=== PATIENT | female | born 1980 ===

== ENCOUNTER 2017-02-10 14:49 | Inpatient (IN) | payer SELFPAY ==
[2017-02-10 15:35] VITALS: BMI 34.3
--- NOTE | 2017-02-10 15:52 | CP.PCM.HP ---
Addendum entered and electronically signed by Emily Horne DO, DO 16:26: Per discussion with neurology, will dose Verapamil 40mg Q12h starting 02/11/17 Original Note: <Emily Horne DO - Last Filed: 02/10/17 16:24> History of Present Illness - History of Present Illness History of Present Illness: Patient is a 36 year old female with history of right sided facial parasthesia who presented to the [facility] ED on 02/06 for new onset right arm numbness and weakness. Head CT performed with f/u carotid artery US and MRI of brain showing multiple small foci of diffusion restriction in the left brain with the largest focus seen at the posterior left parietal lobe. Findings suggestive of acute embolic infarctions. Patient was evaluated by neurologist Dr. Torres and roll mill operator Dr. Peñaloza at [facility]. Patient had work up for symptoms including carotid US, Brain MRI, Echo with bubble study, CTA neck and brain, and coagulopathy work up. Patient was transferred to [facility] today, for cerebral angiogram with Dr. Figueroa, but study was cancelled. Patient was noted to be bradycardic on heart monitor with rate in mid 40s. Patient is asymptomatic and denies dizziness, headache, shortness of breath, chest pain, palpitations, nausea, vomiting, abdominal pain. Patient is currently resting comfortably. Medications: (from [facility]) verapamil 80mg PO BID, protonix 40mg po daily, zofran 4mg IV q6prn, multivitamin, plavix 75mg PO daily, lipitor 40mg PO daily, aspirin 81mg PO daily Allergies: NKDA PSH: FH: Unremarkable SH: Denies tobacco, ETOH and illicit drug use Present on Admission - Present on Admission Any Indicators Present on Admission: No Review of Systems - Constitutional Constitutional: absent: Chills, Fever - EENT Eyes: absent: Change in Vision Ears: absent: Dizziness - Cardiovascular Cardiovascular: absent: Chest Pain, Diaphoresis, Dyspnea - Respiratory Respiratory: absent: Cough - Gastrointestinal Gastrointestinal: absent: Abdominal Pain, Nausea, Vomiting - Genitourinary Genitourinary: absent: Difficulty Urinating, Dysuria - Reproductive: Female Reproductive:Female: Heavy Menses - Musculoskeletal Musculoskeletal: absent: Numbness - Integumentary Integumentary: absent: Rash - Neurological Neurological: absent: Dizziness Past Patient History - Past Medical History & Family History Past Medical History?: Yes - Past Social History Smoking Status: Never Smoked - CARDIAC Hx Cardiac Disorders: No - PULMONARY Hx Respiratory Disorders: No - NEUROLOGICAL Hx Neurological Disorder: Yes (Facial paralysis) - HEENT Hx HEENT Problems: No - RENAL Hx Chronic Kidney Disease: No - ENDOCRINE/METABOLIC Hx Endocrine Disorders: No - HEMATOLOGICAL/ONCOLOGICAL Hx Blood Disorders: No - INTEGUMENTARY Hx Dermatological Problems: No - MUSCULOSKELETAL/RHEUMATOLOGICAL Hx Musculoskeletal Disorders: No Hx Falls: No - GENITOURINARY/GYNECOLOGICAL Hx Genitourinary Disorders: No - PSYCHIATRIC Hx Psychophysiologic Disorder: No Hx Substance Use: No - SURGICAL HISTORY Hx Surgeries: No - ANESTHESIA Hx Anesthesia: No Meds Allergies/Adverse Reactions: Allergies Allergy/AdvReac Type Severity Reaction Status Date / Time No Known Allergies Allergy Verified 02/06/17 10:28 Physical Exam - Constitutional Appears: Non-toxic, No Acute Distress - Head Exam Head Exam: ATRAUMATIC, NORMOCEPHALIC - Eye Exam Eye Exam: EOMI Pupil Exam: PERRL - ENT Exam ENT Exam: Mucous Membranes Moist - Respiratory Exam Respiratory Exam: Clear to Auscultation Bilateral - Cardiovascular Exam Cardiovascular Exam: Bradycardia, +S1, +S2 - GI/Abdominal Exam GI & Abdominal Exam: Normal Bowel Sounds, Soft. absent: Tenderness - Extremities Exam Extremities exam: Negative for: pedal edema Additional comments: varicose veins - Neurological Exam Neurological exam: Alert, Oriented x3 Additional comments: right facial droop noted with smiling sensation intact to bilateral upper and lower extremities 5/5 muscle strength bilateral upper and lower extremities Babinski with upgoing toes on right, downgoing toes on left - Psychiatric Exam Psychiatric exam: Normal Affect - Skin Skin Exam: Warm Assessment & Plan - Assessment and Plan (Free Text) Assessment: 36 year old female with recent acute embolic CVA, transferred from [facility] Embolic CVA patient evaluated at [facility] 02/06-02/10, transferred to [facility] 02/10/17 for cerebral angiogram, however procedure was cancelled neurology consult Dr. Torres- help appreciated Continue Aspirin 81 mg PO daily Continue Lipitor 40 mg PO daily Continue Plavix 75 mg PO daily Reducing Verapamil to 80mg PO daily due to bradycardia, see plan below [facility] imaging: Head CT: No acute intracranial hemmorhage. Questionable on age indeterminate infarct left posterior superior parietal cortical/subcortical white matter near the vertex. F/u MRI recommended MRI brain: Multiple small foci of diffusion restriction in the left brain with the largest focus seen at the posterior left parietal lobe. Findings suggestive of acute embolic infarctions. No evidence of acute intracranial hemmorhage, mass effect or midline shift. Carotid artery US: Normal duplex doppler of the cervical carotid and vertebral arteries Echo with bubble study: normal echocardiogram, no ASD present, normal bubble sudy CTA neck and brain: Segmental severe narrowing in the left proxiaml M1 segment and focal narrowing in the left proximal A1 segment. Mild narrowing of the distal left M1 segment. 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 Sinus bradycardia will check EKG now with labs including DESTIN panel patient was placed on Verapamil 80mg PO BID at [facility], will lower dose to 80mg daily patient was previously evaluated at [facility] by Dr. Peñaloza patient may need loop recorder- to be seen as outpatient Anemia ferritin 5.2 Hgb 8.9 on 02/08 continue IV iron Prophylaxis lovenox 40mg sc daily zofran prn for nausea protonix 40mg PO daily <Meredith Brantley V - Last Filed: 02/11/17 00:00> Results - Vital Signs Recent Vital Signs: Last Vital Signs Temp 98.1 F 02/10/17 22:00 Pulse 59 L 02/10/17 22:49 Resp 18 02/10/17 22:00 BP 148/56 L 02/10/17 22:00 Pulse Ox 100 02/10/17 22:00 - Labs Result Diagrams: 02/10/17 16:55 02/10/17 16:55 Labs: Laboratory Results - last 24 hr 02/10/17 02/10/17 02/10/17 16:55 16:55 16:55 WBC 12.6 H RBC 3.55 L Hgb 7.7 L Hct 25.4 L MCV 71.5 L MCH 21.7 L MCHC 30.3 L RDW 19.4 H Plt Count 292 MPV 8.5 Neut % (Auto) 70.1 Lymph % (Auto) 23.4 [place] % (Auto) 5.2 Eos % (Auto) 1.1 Baso % (Auto) 0.2 Neut # 8.8 H Lymph # 2.9 [place] # 0.7 Eos # 0.1 Baso # 0.0 PT 11.6 INR 1.0 APTT 30 Sodium 136 Potassium 3.5 L Chloride 104 Carbon Dioxide 27 Anion Gap 8 L BUN 14 Creatinine 0.6 L Est GFR ( Amer) > 60 Est GFR (Non-Af Amer) > 60 Random Glucose 86 Calcium 8.2 L Phosphorus 3.2 Magnesium 1.7 Total Bilirubin 0.2 AST 19 ALT 23 Alkaline Phosphatase 59 Total Creatine Kinase 26 L CK-MB (Mass) 0.33 Troponin I < 0.0120 Total Protein 5.7 L Albumin 3.3 L Globulin 2.4 Albumin/Globulin Ratio 1.3 Attending/Attestation - Attestation I have personally seen and examined this patient.: Yes I have fully participated in the care of the patient.: Yes I have reviewed all pertinent clinical information: Yes Notes (Text): Patient seen, examined, and case discussed with day-time resident, neurology nurse practictioner, neurologist, and colleagues, Dr Tovar and Dr. Jeffries, hospitalists from [place]. Patient has transferred from [facility] today during hospitalization and workup for thromboembolic CVA for cerebral angiogram today scheduled in [facility] for this afternoon. Due to unforeseen circumstances, patient's cerebral angiogram was cancelled. Procedures for cerebral angiogram in [facility] for future will be reviewed and hopefully approved for future. Neurology and neurology nurse practitioner will arrange for patient to have cerebral angiogram in [facility] for next week, per neurology she is stable for discharge. Patient noted discussion with neurology practitioner had right sided findings of face, upper and lower extremity weakness which has improved significantly, speech improved, with minimal facial droop over the right during her hospitalization at [place]. On exam here, patients strength is 5/5 upper and lower b/l upper and lower extremities but patient does have facial droop on right side which is apparent when patient smiles or attempts to lift both her eye brows. Patient is stable by neurology stand point for discharge. Recommend for aspirin, lipitor, plavix and verapamil upon discharge. Patient is sinus bradycardic, asymptomatic. Patient was started on verapmil 80mg PO bid for arterial relaxation to reduce further incidence of embolic stroke. Discussed with neurology, will reduce Verampil to improve patient's heart rate. EKG and DESTIN repeated at [facility]. Discussed with hospitalist at [place], patient' s heart rate has also been in 40s but patient was asymptomatic as well. Patient at one point was recommend for loop recorder to check for paroxysmal atrial fibrillation as source if there was no acute findings noted on angiography but there are findings on angiography, will not need loop recorder. 36 year old female with recent acute embolic CVA, transferred from [facility] for cerebral angiogram which was scheduled by neurology for 3:30PM. Cerebral angiogram was cancelled due to unforeseen circumstances. refuse laborer to review for future neurologic procedures in the future. Assessment/Plan 1) Thrombo Embolic CVA * patient evaluated at [facility] 02/06-02/10, transferred to [facility] 02/10/17 for cerebral angiogram, however procedure was cancelled * Neurology has arranged for patient to go to [place] next week for cerebral angiogram, but patient is stable for discharge from their perspective. * Neurology consult Dr. Torres- help appreciated * Continue Aspirin 81 mg PO daily * Continue Lipitor 40 mg PO qHS * Continue Plavix 75 mg PO daily * Reducing Verapamil to 80mg PO daily due to bradycardia, see plan below [facility] imaging: * Head CT: No acute intracranial hemmorhage. Questionable on age indeterminate infarct left posterior superior parietal cortical/subcortical white matter near the vertex. F/u MRI recommended * MRI brain: Multiple small foci of diffusion restriction in the left brain with the largest focus seen at the posterior left parietal lobe. Findings suggestive of acute embolic infarctions. No evidence of acute intracranial hemmorhage, mass effect or midline shift. * Carotid artery US: Normal duplex doppler of the cervical carotid and vertebral arteries * Echo with bubble study: normal echocardiogram, no ASD present, normal bubble sudy * CTA neck and brain: Segmental severe narrowing in the left proxiaml M1 segment and focal narrowing in the left proximal A1 segment. Mild narrowing of the distal left M1 segment. 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 2) Sinus bradycardia * will check EKG now with labs including DESTIN panel * patient was placed on Verapamil 80mg PO BID at [facility], will lower dose to 80mg daily: to relax arteries for slow rate for future embolic stroke per discussion with neurology nurse practictioner * patient was previously evaluated at [facility] by Dr. Peñaloza in [place] hospitalization. noted patient may need loop recorder- to be seen as outpatient in documentation. I have discussed with hospitalist at [place], loop recorder was recommended to rule out paroxysmal atrial fibrillation, However they have discussed with neurology, unlikely patient will need given findings on MRI angiography. 3) Anemia * ferritin 5.2 * Hgb 8.9 on 02/08 * Patient previously on IV iron at [place], will continue here 4) Prophylaxis * lovenox 40mg sc daily * zofran prn for nausea * protonix 40mg PO daily Disposition: will observe overnight on on lower dose of Verapamil. If heart rate is stable and clinically, stable patient is for discharge and will follow- up with neurology team who will arrange for cerebral angiogram at [place]. Per neurology, patient is stable for discharge from [facility].
[2017-02-10 17:00] LABS: BASO % 0.2 % (0.0-2.0); EOS # 0.1 K/uL (0.0-0.7); EOS % 1.1 % (0.0-4.0); HEMATOCRIT 25.4 % (34.0-47.0); LYMPH # 2.9 K/uL (1.0-4.3); LYMPH % 23.4 % (20.0-40.0); MEAN CELL VOLUME 71.5 fL (81.0-99.0); MEAN CORPUSCULAR HEMOGLOBIN 21.7 pg (27.0-31.0); MEAN CORPUSCULAR HGB CONC 30.3 g/dL (33.0-37.0); MEAN PLATELET VOLUME 8.5 fL (7.2-11.7); MONO # 0.7 K/uL (0.0-0.8); MONO % 5.2 % (0.0-10.0); RED CELL DISTRIBUTION WIDTH 19.4 % (11.5-14.5); WHITE BLOOD COUNT 12.6 K/uL (4.8-10.8)
[2017-02-10 17:12] LABS: ALKALINE PHOSPHATASE 59 U/L (38-126); ALT/SGPT 23 U/L (9-52); AST/SGOT 19 U/L (14-36); BILIRUBIN,TOTAL 0.2 mg/dL (0.2-1.3); BLOOD UREA NITROGEN 14 mg/dL (7-17); CALCIUM 8.2 mg/dl (8.6-10.4); CARBON DIOXIDE 27 mmol/L (22-30); CHLORIDE 104 mmol/L (98-107); GFR AFRICAN-AMERICAN > 60; GLUCOSE,RANDOM 86 mg/dL (65-105); MAGNESIUM 1.7 mg/dL (1.6-2.3); PHOSPHOROUS 3.2 mg/dL (2.5-4.5); POTASSIUM 3.5 mmol/L (3.6-5.2); SODIUM 136 mmol/L (132-148); TOTAL PROTEIN 5.7 g/dL (6.3-8.3)
[2017-02-10 17:28] LABS: ALB/GLOB RATIO 1.3 (1.0-2.1)
[2017-02-10 22:34] VITALS: O2SAT 100
[2017-02-10] MEDS ORDERED: Potassium Chloride 20 mEq ER Tab PO ONE (23:45)
[2017-02-11 06:53] LABS: BASO # 0.1 K/uL (0.0-0.2); BASO % 0.6 % (0.0-2.0); EOS # 0.3 K/uL (0.0-0.7); EOS % 3.3 % (0.0-4.0); HEMATOCRIT 23.2 % (34.0-47.0); LYMPH # 3.4 K/uL (1.0-4.3); LYMPH % 38.1 % (20.0-40.0); MEAN CELL VOLUME 72.3 fL (81.0-99.0); MEAN CORPUSCULAR HEMOGLOBIN 22.4 pg (27.0-31.0); MEAN PLATELET VOLUME 9.3 fL (7.2-11.7); MONO # 0.5 K/uL (0.0-0.8); MONO % 5.4 % (0.0-10.0); NRBC % 0.1 % (0.0-2.0); RED CELL DISTRIBUTION WIDTH 19.9 % (11.5-14.5)
[2017-02-11 07:18] LABS: ALB/GLOB RATIO 0.9 (1.0-2.1); ALKALINE PHOSPHATASE 54 U/L (38-126); ALT/SGPT 27 U/L (9-52); AST/SGOT 19 U/L (14-36); BILIRUBIN,TOTAL 0.2 mg/dL (0.2-1.3); BLOOD UREA NITROGEN 20 mg/dL (7-17); CALCIUM 8.1 mg/dl (8.6-10.4); CARBON DIOXIDE 28 mmol/L (22-30); CHLORIDE 104 mmol/L (98-107); GFR AFRICAN-AMERICAN > 60; GLUCOSE,RANDOM 78 mg/dL (65-105); MAGNESIUM 1.8 mg/dL (1.6-2.3); POTASSIUM 4.3 mmol/L (3.6-5.2); SODIUM 136 mmol/L (132-148); TOTAL PROTEIN 6.4 g/dL (6.3-8.3)
[2017-02-11 08:21] VITALS: BP 95/55; RESP 20; TEMP 97.9
--- NOTE | 2017-02-11 09:07 | CP.PCM.DIS ---
Provider - Provider Date of Admission: 02/10/17 14:52 Attending physician: Meredith Brantley DO Consults: Dr. Torres Time Spent in preparation of Discharge (in minutes): 31 Diagnosis - Discharge Diagnosis (1) Embolic cerebral infarction Status: Acute (2) Anemia of chronic disease Status: Acute (3) Bradycardia Status: Acute Hospital Course - Lab Results Lab Results: Most Recent Lab Values WBC 9.0 K/uL (4.8-10.8) 02/11/17 06:48 RBC 3.20 Mil/uL (3.80-5.20) L 02/11/17 06:48 Hgb 7.2 g/dL (11.0-16.0) L 02/11/17 06:48 Hct 23.2 % (34.0-47.0) L 02/11/17 06:48 MCV 72.3 fL (81.0-99.0) L 02/11/17 06:48 MCH 22.4 pg (27.0-31.0) L 02/11/17 06:48 MCHC 31.0 g/dL (33.0-37.0) L 02/11/17 06:48 RDW 19.9 % (11.5-14.5) H 02/11/17 06:48 Plt Count 293 K/uL (130-400) 02/11/17 06:48 MPV 9.3 fL (7.2-11.7) 02/11/17 06:48 Neut % (Auto) 52.6 % (50.0-75.0) 02/11/17 06:48 Lymph % (Auto) 38.1 % (20.0-40.0) 02/11/17 06:48 [place] % (Auto) 5.4 % (0.0-10.0) 02/11/17 06:48 Eos % (Auto) 3.3 % (0.0-4.0) 02/11/17 06:48 Baso % (Auto) 0.6 % (0.0-2.0) 02/11/17 06:48 Neut # 4.7 K/uL (1.8-7.0) 02/11/17 06:48 Lymph # 3.4 K/uL (1.0-4.3) 02/11/17 06:48 [place] # 0.5 K/uL (0.0-0.8) 02/11/17 06:48 Eos # 0.3 K/uL (0.0-0.7) 02/11/17 06:48 Baso # 0.1 K/uL (0.0-0.2) 02/11/17 06:48 PT 11.6 SECONDS (9.7-12.2) 02/10/17 16:55 INR 1.0 02/10/17 16:55 APTT 30 SECONDS (21-34) 02/10/17 16:55 Sodium 136 mmol/L (132-148) 02/11/17 06:48 Potassium 4.3 mmol/L (3.6-5.2) 02/11/17 06:48 Chloride 104 mmol/L (98-107) 02/11/17 06:48 Carbon Dioxide 28 mmol/L (22-30) 02/11/17 06:48 Anion Gap 9 (10-20) L 02/11/17 06:48 BUN 20 mg/dL (7-17) H 02/11/17 06:48 Creatinine 0.7 mg/dL (0.7-1.2) 02/11/17 06:48 Est GFR ( Amer) > 60 02/11/17 06:48 Est GFR (Non-Af Amer) > 60 02/11/17 06:48 Random Glucose 78 mg/dL (65-105) 02/11/17 06:48 Calcium 8.1 mg/dl (8.6-10.4) L 02/11/17 06:48 Phosphorus 3.2 mg/dL (2.5-4.5) 02/10/17 16:55 Magnesium 1.8 mg/dL (1.6-2.3) 02/11/17 06:48 Total Bilirubin 0.2 mg/dL (0.2-1.3) 02/11/17 06:48 AST 19 U/L (14-36) 02/11/17 06:48 ALT 27 U/L (9-52) 02/11/17 06:48 Alkaline Phosphatase 54 U/L (38-126) 02/11/17 06:48 Total Creatine Kinase 26 U/L (30-135) L 02/10/17 16:55 CK-MB (Mass) 0.33 ng/mL (0.0-3.38) 02/10/17 16:55 Troponin I < 0.0120 ng/mL (0.00-0.120) 02/10/17 16:55 Total Protein 6.4 g/dL (6.3-8.3) 02/11/17 06:48 Albumin 3.0 g/dL (3.5-5.0) L 02/11/17 06:48 Globulin 3.4 gm/dL (2.2-3.9) 02/11/17 06:48 Albumin/Globulin Ratio 0.9 (1.0-2.1) L 02/11/17 06:48 - Hospital Course Hospital Course: As per H&P " Patient is a 36 year old female with history of right sided facial parasthesia who presented to the [facility] ED on 02/06 for new onset right arm numbness and weakness. Head CT performed with f/u carotid artery US and MRI of brain showing multiple small foci of diffusion restriction in the left brain with the largest focus seen at the posterior left parietal lobe. Findings suggestive of acute embolic infarctions. Patient was evaluated by neurologist Dr. Torres and lsat instructor Dr. Peñaloza at [facility]. Patient had work up for symptoms including carotid US, Brain MRI, Echo with bubble study, CTA neck and brain, and coagulopathy work up. Patient was transferred to [facility] today, for cerebral angiogram with Dr. Figueroa, but study was cancelled. Patient was noted to be bradycardic on heart monitor with rate in mid 40s. Patient is asymptomatic and denies dizziness, headache, shortness of breath, chest pain, palpitations, nausea, vomiting, abdominal pain. Patient is currently resting comfortably. Medications: (from [facility]) verapamil 80mg PO BID, protonix 40mg po daily, zofran 4mg IV q6prn, multivitamin, plavix 75mg PO daily, lipitor 40mg PO daily, aspirin 81mg PO daily Allergies: NKDA PSH: FH: Unremarkable SH: Denies tobacco, ETOH and illicit drug use" Patient was transferred from [facility] after completing workup for embolic cerebrovascular accident for cerebral angiogram. Procedure was cancelled due to unforeseen circumstances. Patient will be scheduled for outpatient cerebral angiogram to be completed at [place] with Dr. Figueroa. Day of discharge, patient denies acute complaints. Patient's strength has improved bilateral and facial droop over right side of face which is minimal. Please note, in regards to anemia of chronic disease, patient is currently on her menstruation and will need follow-up in the clinic for anemia and history of fibroids. Case discussed with student support services director, Dr. Turpin, recommends for patient to establish care at cardiology clinic to loop recorder placement and monitoring. Discharge instructions: 1) Aspirin 81mg PO daily (30 tabs) 2) Plavix 75mg PO daily (30 tabs) 3) Lipitor 40mg POqHS (30 tabs) 4) Verampil 40mg PO BID (60 tabs/0) 5) Ferrous sulfate 325mg PO BID (60 tabs/0). 6) Colace 100mg PO BID (60 tabs/0) 7) Multivitamin OTC 1) Recommended to follow-up with neurology, Dr. Torres. 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 3) Recommended to follow-up with lsat instructor, Dr. Maddox, CPN cardiology/ Cardiology clinic for loop recorder placement and follow-up. This is a summary of patient's hospitalization at [facility]. Please refer to [facility] EMR 02/06- for workup in regards to embolic stroke. Discharge Diagnoses: 1) Thrombo Embolic CVA * patient evaluated at [facility] 02/06-02/10, transferred to [facility] 02/10/17 for cerebral angiogram, however procedure was cancelled * Hypercoaguable workup completed * Neurology has arranged for patient to go to [place] next week for cerebral angiogram, but patient is stable for discharge from their perspective. * Neurology consult Dr. Torres- help appreciated * Continue Aspirin 81 mg PO daily * Continue Lipitor 40 mg PO qHS * Continue Plavix 75 mg PO daily * Reduced Verapamil 40mg PO BID [facility] imaging: * Head CT: No acute intracranial hemmorhage. Questionable on age indeterminate infarct left posterior superior parietal cortical/subcortical white matter near the vertex. F/u MRI recommended * MRI brain: Multiple small foci of diffusion restriction in the left brain with the largest focus seen at the posterior left parietal lobe. Findings suggestive of acute embolic infarctions. No evidence of acute intracranial hemmorhage, mass effect or midline shift. * Carotid artery US: Normal duplex doppler of the cervical carotid and vertebral arteries * Echo with bubble study: normal echocardiogram, no ASD present, normal bubble sudy * CTA neck and brain: Segmental severe narrowing in the left proxiaml M1 segment and focal narrowing in the left proximal A1 segment. Mild narrowing of the distal left M1 segment. 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 2) Sinus bradycardia * EKG: sinus bradycardia; DESTIN: negative * patient was placed on Verapamil 40mg PO BID at [facility], will lower dose to 80mg daily: to relax arteries for slow rate for future embolic stroke per discussion with neurology nurse practictioner * patient was previously evaluated at [facility] by Dr. Peñaloza in [place] hospitalization. noted patient may need loop recorder- to be seen as outpatient in documentation. I have discussed with hospitalist at [facility], loop recorder was recommended to rule out paroxysmal atrial fibrillation, However they have discussed with neurology, unlikely patient will need given findings on MRI angiography. * Discussed with Dr. Turpin, recommended for patient to establish care at cardiology clinic or with Dr. maddox, [facility] cardiology for consideration for loop recorder; had reviewed patient echocardiogram w bubble from [place]. 3) Anemia * Likely chronic * Patient is currently on her menstruation. Patient has history of menorrhagia. Will need to be follow-up at the clinic for referral for [facility] Clinic. * Age 13 of first period * Currently on day 4 of her period * She is regular in terms of when her period comes in * No history of abnormal PAPs; last 2015 which was normal * 4 Pregnancies: 3 normal and 1 miscarriage * Patient has completed pelvic US 2016 for fibroids. * Will discharge: * Ferrous sulfate 325mg PO BID (60 tabs/0). * Vitamin C to help with iron absorption * Colace 100mg PO BID to prevent constipation * Will need repeat iron studies at the clinic when patient is not on her menstruation 4) Prophylaxis * lovenox 40mg sc daily * zofran prn for nausea * protonix 40mg PO daily - Date & Time of H&P Date of H&P: 02/10/17 Time of H&P: 15:45 Discharge Exam - Head Exam Head Exam: ATRAUMATIC, NORMOCEPHALIC Additional comments: Mild facial droop (right side of face) apparent while smiling - Eye Exam Eye Exam: EOMI, PERRL. absent: Nystagmus, Scleral icterus Pupil Exam: NORMAL ACCOMODATION - ENT Exam ENT Exam: Mucous Membranes Moist - Respiratory Exam Respiratory Exam: NORMAL BREATHING PATTERN. absent: Decreased Breath Sounds, Rhonchi, Wheezes, Respiratory Distress - Cardiovascular Exam Cardiovascular Exam: REGULAR RHYTHM, +S1, +S2 - GI/Abdominal Exam GI & Abdominal Exam: Normal Bowel Sounds, Soft. absent: Distended, Firm, Guarding, Rebound, Rigid, Tenderness - Extremities Exam Extremities exam: pedal pulses present - Back Exam Back exam: absent: CVA tenderness (L), CVA tenderness (R), rash noted - Neurological Exam Neurological exam: Alert, CN II-XII Intact, Oriented x3 Additional comments: strength 5/5 UE and LE Sensation intact negative [place] +gag reflex right facial droop-->apparent when patient smiles. - Psychiatric Exam Psychiatric exam: Normal Affect, Normal Mood - Skin Skin Exam: Dry, Intact, Normal Color, Warm Discharge Plan - Discharge Medications Prescriptions: Ascorbic Acid [Vitamin C] 500 mg PO DAILY #30 tab Aspirin [Aspirin Chewable] 81 mg PO DAILY #30 chew Atorvastatin [Lipitor] 40 mg PO DAILY #30 tab Docusate Sodium [Colace] 100 mg PO BID #60 capsule Ferrous Sulfate 325 mg PO TID #90 tablet Multivitamin [Chewable-Aixa] 1 tab PO DAILY #30 tab Verapamil [Calan Tab] 40 mg PO Q12 #60 tab - Follow Up Plan Condition: STABLE Disposition: HOME/ ROUTINE Additional Instructions: Discharge instructions: 1) Aspirin 81mg PO daily (30 tabs) 2) Plavix 75mg PO daily (30 tabs) 3) Lipitor 40mg POqHS (30 tabs) 4) Verampil 40mg PO BID (60 tabs/0) 5) Ferrous sulfate 325mg PO BID (60 tabs/0). 6) Colace 100mg PO BID (60 tabs/0) 7) Multivitamin OTC 1) Recommended to follow-up with neurology, Dr. Torres. 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 3) Recommended to follow-up with lsat instructor, KAMLESH Vasquez cardiology/ Cardiology clinic for loop recorder placement and follow-up.. Referrals: [facility] [Provider Group] - 7 Days (Patient to establish care at [facility] ([phone])) Kevin Torres MD [Staff Provider] - 7 Days (Patient should call to schedule for cerebral angiogram for [place]) Manish Maddox MD [Staff Provider] - 2 Weeks (for loop recorder evaluation) Clinical Quality Measures - CQM - Stroke Antithrombotic Prescribed: Yes Anticoagulation Prescribed for Atrial Flutter, Atrial Fibrillation and History of:: Not Applicable Statin prescribed: Yes Attending/Attestation - Attestation I have personally seen and examined this patient.: Yes I have fully participated in the care of the patient.: Yes I have reviewed all pertinent clinical information, including history, physical exam and plan: Yes
[2017-02-11] MEDS ORDERED: Ferric Sodium Gluconat Complex 62.5 mg/5 ml Vial IVPB SCH (10:00)
[2017-02-11] MEDS ORDERED: Ferric Sodium Gluconat Complex 125 MG in Sodium Chloride 0.9% 100 ML IVPB SCH (10:00)
[2017-02-11] MEDS ORDERED: Multiple Vitamins Tab PO SCH (10:00)
[2017-02-11] MEDS ORDERED: Pantoprazole 40 mg EC Tab PO SCH (10:00)
[2017-02-11] MEDS ORDERED: Enoxaparin 40 mg Syringe SC SCH (10:00)
[2017-02-11 10:20] VITALS: PULSE 66
[2017-02-11] MEDS ORDERED: Influenza Vaccine 60 mcg/0.5 mL SYR (4YR UP) IM ONE (10:55)
[2017-02-11] MEDS ORDERED: Pneumococcal 23-Valent Vaccine IM ONE (10:55)
== END 2017-02-11 13:00 | disposition home or self-care (01) | DRG 66 ==
LOC: C.SPRAD 14:49 → C.9I 14:52
PROVIDERS: ADMIT Hospitalist; ATTEND Hospitalist
DX: I63.40 Cerebral infarction due to embolism of unspecified cerebral artery (principal); I48.0 Paroxysmal atrial fibrillation; R00.1 Bradycardia, unspecified; D50.0 Iron deficiency anemia secondary to blood loss (chronic); Z53.9 Procedure and treatment not carried out, unspecified reason; Z79.82 Long term (current) use of aspirin

== ENCOUNTER 2017-02-14 23:02 | Emergency (ER) | payer OTHER ==
[2017-02-14 23:03] VITALS: BMI 34.3
--- NOTE | 2017-02-14 23:38 | C.PDOC ---
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 Patient is currently speaking in complete sentences and denies fever, chills, nausea, vomiting or diarrhea. Time Seen by Provider: 02/14/17 23:36 Chief Complaint (Nursing): Palpitations History Per: Patient History/Exam Limitations: no limitations Onset/Duration Of Symptoms: Hrs Current Symptoms Are (Timing): Still Present Associated Symptoms: Chest Pain Quality Of Symptoms: Rapid Heart Rate Severity: Mild Pain Scale Rating Of: 3 Exacerbating Factor(s): Pos: None Recent travel outside of the [place]: No Additional History Per: Patient Past Medical History Reviewed: Historical Data, Nursing Documentation, Vital Signs Vital Signs: Last Vital Signs Temp 98 F 02/14/17 23:17 Pulse 54 L 02/15/17 04:55 Resp 16 02/15/17 04:55 BP 119/67 02/15/17 04:55 Pulse Ox 96 02/15/17 04:55 - Medical History PMH: No Chronic Diseases Surgical History: No Surg Hx Family History: States: No Known Family Hx - Social History Hx Alcohol Use: No Hx Substance Use: No Review Of Systems Constitutional: Negative for: Fever, Chills Eyes: Negative for: Vision Change ENT: Negative for: Throat Pain Cardiovascular: Positive for: Chest Pain, Palpitations Gastrointestinal: Negative for: Nausea, Vomiting, Diarrhea Genitourinary: Negative for: Dysuria Musculoskeletal: Negative for: Back Pain Skin: Negative for: Rash Neurological: Negative for: Weakness Psych: Negative for: Anxiety Physical Exam - Physical Exam Appears: Non-toxic, Other (Awake and alert) Skin: Warm, Dry Head: Normacephalic Eye(s): bilateral: Normal Inspection Oral Mucosa: Moist Neck: Supple Chest: Symmetrical, No Tenderness Cardiovascular: Rhythm Regular Respiratory: No Rales, No Rhonchi, No Wheezing Gastrointestinal/Abdominal: Soft, No Tenderness Back: Normal Inspection Extremity: Normal ROM Extremity: Bilateral: Atraumatic Pulses: Left Dorsalis Pedis: Normal, Right Dorsalis Pedis: Normal Neurological/Psych: Oriented x3, Normal Speech, Normal Cognition Gait: Steady ED Course And Treatment - Laboratory Results Result Diagrams: 02/14/17 23:55 02/14/17 23:55 ECG: Interpreted By Me, Viewed By Me ECG Rhythm: Sinus Rhythm (57), Nonspecific Changes O2 Sat by Pulse Oximetry: 100 (Room air) Pulse Ox Interpretation: Normal Progress Note: Ordered CT head, EKG, blood work, CXR, and urinalysis. no more headache. feels fine. wants to sleep because she has no way to get home. vitals stable Reevaluation Time: 03:16 Reassessment Condition: Improved Disposition Counseled Patient/Family Regarding: Studies Performed, Diagnosis, Need For Followup - Disposition Referrals: [facility] [Outside] [facility] [Outside] Disposition: HOME/ ROUTINE Disposition Time: 23:37 Condition: FAIR Instructions: Palpitations (ED), Acute Headache (DC) Forms: Clinical Ink (Arabic) Print Language: LATVIAN - Clinical Impression Clinical Impression: Palpitations, Headache - Scribe Statement The provider has reviewed the documentation as recorded by the Scribconstance Schaeffer All medical record entries made by the Vidalibconstance were at my direction and personally dictated by me. I have reviewed the chart and agree that the record accurately reflects my personal performance of the history, physical exam, medical decision making, and the department course for this patient. I have also personally directed, reviewed, and agree with the discharge instructions and disposition.
[2017-02-15 00:17] LABS: BASO % 0.4 % (0.0-2.0); EOS # 0.2 K/uL (0.0-0.7); EOS % 2.9 % (0.0-4.0); HEMATOCRIT 27.1 % (34.0-47.0); LYMPH # 2.4 K/uL (1.0-4.3); LYMPH % 31.8 % (20.0-40.0); MEAN CELL VOLUME 75.5 fL (81.0-99.0); MEAN CORPUSCULAR HEMOGLOBIN 23.4 pg (27.0-31.0); MEAN PLATELET VOLUME 9.4 fL (7.2-11.7); MONO # 0.5 K/uL (0.0-0.8); NRBC % 0.1 % (0.0-2.0); RED CELL DISTRIBUTION WIDTH 25.4 % (11.5-14.5); WHITE BLOOD COUNT 7.6 K/uL (4.8-10.8)
[2017-02-15 00:23] LABS: RBC URINE < 1 /hpf (0-3); URINE BILIRUBIN NEGATIVE (NEGATIVE); URINE BLOOD NEGATIVE (NEGATIVE); URINE COLOR Yellow (YELLOW); URINE GLUCOSE (UA) NORMAL (Normal); URINE KETONE NEGATIVE (NEGATIVE); URINE LEUKOCYTE ESTERASE NEG Leu/uL (Negative); URINE PROTEIN NEGATIVE (NEGATIVE); URINE UROBILINOGEN NORMAL mg/dL (0.2-1.0); WBC URINE 2 /hpf (0-5)
[2017-02-15 01:11] LABS: ALB/GLOB RATIO 1.1 (1.0-2.1); ALKALINE PHOSPHATASE 64 U/L (38-126); ALT/SGPT 29 U/L (9-52); AST/SGOT 24 U/L (14-36); BILIRUBIN,TOTAL 0.2 mg/dL (0.2-1.3); BLOOD UREA NITROGEN 17 mg/dL (7-17); CALCIUM 7.9 mg/dl (8.6-10.4); CARBON DIOXIDE 29 mmol/L (22-30); CHLORIDE 101 mmol/L (98-107); GFR AFRICAN-AMERICAN > 60; GLUCOSE,RANDOM 102 mg/dL (65-105); POTASSIUM 3.5 mmol/L (3.6-5.2); SODIUM 137 mmol/L (132-148); THYROID STIMULATING HORMONE 6.84 mIU/L (0.46-4.68); TOTAL PROTEIN 6.4 g/dL (6.3-8.3)
[2017-02-15 01:42] VITALS: RESP 16
--- NOTE | 2017-02-15 02:33 | CT ---
EXAM: CT Head Without Intravenous Contrast EXAM DATE/TIME: 02/15/2017 1:05 AM CLINICAL HISTORY: 36 years old, female; Pain; Headache; Patient HX: 1219-17; Additional info: Headache, HX of embolic CVA TECHNIQUE: Axial computed tomography images of the head/brain without intravenous contrast. All CT scans at this facility use one or more dose reduction techniques, viz.: automated exposure control; ma/kV adjustment per patient size (including targeted exams where dose is matched to indication; i.e. head); or iterative reconstruction technique. COMPARISON: No relevant prior studies available. FINDINGS: BRAIN: No significant acute abnormality identified. No acute hemorrhage seen within the brain. No acute extra-axial fluid collections visualized. No evidence of significant mass effect within the brain.No CT findings to suggest an acute, large territorial infarct, however, small or early acute infarcts may not be visible on CT. VENTRICLES: No evidence of significant hydrocephalus. BONES/JOINTS: No acute fractures or other acute bony abnormality noted. SOFT TISSUES: No acute abnormality of the visualized soft tissues is seen. SINUSES: Visualized paranasal sinuses appear clear. MASTOID AIR CELLS: Mastoid air cells appear clear. IMPRESSION: - No acute findings seen within the brain. - See above for remaining findings.
[2017-02-15 04:56] VITALS: BP 119/67; PULSE 54
[2017-02-15 05:26] VITALS: O2SAT 100
[2017-02-15 05:37] VITALS: TEMP 98.5
--- NOTE | 2017-02-15 09:14 | RAD ---
PROCEDURE: CHEST RADIOGRAPH, 1 VIEW HISTORY: chest pain COMPARISON: None available. FINDINGS: LUNGS: Clear. PLEURA: No pneumothorax or pleural fluid seen. CARDIOVASCULAR: Normal. OSSEOUS STRUCTURES: No significant abnormalities. VISUALIZED UPPER ABDOMEN: Normal. OTHER FINDINGS: None. IMPRESSION: No active disease.
== END 2017-02-15 05:42 | disposition home or self-care (01) ==
LOC: C.ER 23:02
DX: R51 Headache (principal); R00.2 Palpitations
CPT/HCPCS: 70450; 71010; 80053; 81001; 84443; 84484; 84703; 85025; 85610; 85730; 96374; 99285; J1885